=== PATIENT | female | born 1945 | race Caucasian/White ===

== ENCOUNTER → 2017-10-21 | Outpatient (CLI) | payer MEDICARE, OTHER ==
[~2017-10-21] MED LIST: FLAGYL500 MG PO; LEVAQUIN 750MG750 M1 PO; PARLODEL 2.5MG2.5 MG PO; PERCOCET 325 MG1 TA2 PO; PREMARIN .3MG0.3 MG PO; ULTRAM 50MG TAB50 MG PO; ZOFRAN8 MG PO
== END ==
LOC: MC.RAD 09-16 14:20
DX: Z12.31 Encounter for screening mammogram for malignant neoplasm of breast (principal)

== ENCOUNTER 2019-07-23 08:01 | Day surgery (SDC) | payer MEDICARE ==
[~2019-07-23] VITALS: Ht 160 cm; Wt 95.9 kg
[~2019-07-23 08:01] MED LIST changes: +CIPRO 500MG TA500 MG PO; +LIPITOR 10MG10 MG PO; +MOTRIN 200200 MG/TAB PO; +NORCO 325 MG-51 TAB PO; +TYLENOL 500MG500 MG PO
[2019-07-23 08:51] VITALS: BP 172/79; PULSE 64; TEMP 97.9
[2019-07-23] MEDS ORDERED: SYNTHROID0.05 MG/TA PO (08:56)
[2019-07-23] MEDS ORDERED: LIPITOR 10MG10 MG PO (08:57)
[2019-07-23 10:10] VITALS: BP 132/69; PULSE 82; TEMP 97.7
--- NOTE | 2019-07-23 10:10 | NUR ---
Patient brought back from endo suites via cart. Ambulated to chair without difficulty. Daughter in law at bedside. Placed on monitors, vital signs stable. Warm blanket provided. Pt requests coffee and muffin. Denies any nausea or pain. All safety maintained, call claudio within reach. Will continue to montior.
[2019-07-23 10:15] VITALS: BP 130/69; PULSE 72
[2019-07-23 10:30] VITALS: BP 125/56; PULSE 80
--- NOTE | 2019-07-23 10:30 | NUR ---
Patient tolerating food and drink without difficulty. Vital signs stable. IV infusing without difficulty. Will continue to monitor.
[2019-07-23 10:45] VITALS: BP 117/66; PULSE 72
--- NOTE | 2019-07-23 10:45 | NUR ---
Patient states she is feeling ready to go home. Vital signs stable. IV removed. Patient to get dressed at this time.
--- NOTE | 2019-07-23 11:05 | NUR ---
Discharge instructions reviewed with patient and family. All questions answered. Pt brought down to lobby via wheel chair. Daughter in law to drive pt home.
== END 2019-07-23 11:05 | disposition home or self-care (01) ==
LOC: SDCO 08:01
DX: Z12.11 Encounter for screening for malignant neoplasm of colon (principal); K57.30 Diverticulosis of large intestine without perforation or abscess without bleeding; K63.89 Other specified diseases of intestine; K64.4 Residual hemorrhoidal skin tags; E11.9 Type 2 diabetes mellitus without complications; K76.0 Fatty (change of) liver, not elsewhere classified; E78.00 Pure hypercholesterolemia, unspecified; Z83.71 Family history of colonic polyps; Z90.710 Acquired absence of both cervix and uterus
CPT/HCPCS: J2250; J2405; J3010; J7030

== ENCOUNTER 2019-08-10 20:07 | Emergency (ER) | payer MEDICARE ==
[~2019-08-10] VITALS: Ht 160 cm; Wt 100.0 kg
[~2019-08-10 20:07] MED LIST changes: +SYNTHROID0.05 MG/TA PO
[2019-08-10 20:20] VITALS: BP 159/70; TEMP 99.1
[2019-08-10] MEDS ORDERED: PREMARIN .3MG0.3 MG PO (20:23)
[2019-08-10] MEDS ORDERED: ZOCOR 10MG10 MG PO (20:24)
[2019-08-10] MEDS ORDERED: PRINIVIL10 MG PO (20:24)
[2019-08-10 21:03] LABS: BASO # 0.1 (0.0-0.2); EOS # 0.2 (0.0-0.7); EOS % 2.7 % (0-4.0); GRAN # 5.6 (1.4-6.5); GRAN % 66.9 % (42.2-75.2); HEMOGLOBIN 14.2 g/dl (12.5-16.0); LYMPH # 1.4 (1.2-3.4); LYMPH % 16.9 % (20.0-51.0); MEAN CELL VOLUME 89 fl (80.0-100.0); MEAN CORPUSCULAR HEMOGLOBIN 30 pg (27.0-31.0); MEAN CORPUSCULAR HGB CONC 34 g/dl (33.0-37.0); MEAN PLATELET VOLUME 11.2 fl (7.4-10.4); MONO % 12.3 % (1.7-9.3); PLATELET COUNT 210 K/mm3 (130-400); RED BLOOD COUNT 4.72 M/mm3 (4.10-5.30); REDCELL DISTRIBUTION WIDTH-CV 12.3 % (11.5-14.5)
[2019-08-10 21:15] LABS: ALBUMIN 4.4 gm/dL (3.5-5.0); BILIRUBIN,TOTAL 0.5 mg/dL (0.0-1.0); CALCIUM 9.4 mg/dL (8.4-10.2); CREATININE, serum 0.75 (0.52-1.25); TOTAL PROTEIN 7.7 gm/dL (6.4-8.2)
[2019-08-10 21:53] LABS: COLLECTION METHOD CLEAN CATCH
[2019-08-10 21:58] LABS: MUCOUS Present /lpf; PH 5 (5-8); SQUAMOUS EPITHELIAL 0-2 /hpf; URINE APPEARANCE Clear; URINE BACTERIA None Seen /hpf; URINE BILIRUBIN Negative (NEGATIVE); URINE BLOOD Negative (NEGATIVE); URINE COLOR Yellow; URINE GLUCOSE 2+ (NEGATIVE); URINE KETONE Negative (NEGATIVE); URINE LEUKOCYTE ESTERASE Trace (NEGATIVE); URINE NITRATE Negative (NEGATIVE); URINE PROTEIN(semi-quant) Negative (NEGATIVE); URINE RBC 0-2 /hpf; URINE UROBILINOGEN Negative (NEGATIVE)
[2019-08-10] MEDS ORDERED: DOXYCYCLINE 10100 MG PO (22:42)
[2019-08-11 00:13] VITALS: PULSE 83
== END 2019-08-11 00:13 | disposition home or self-care (01) ==
LOC: COL.ER 20:07
PROVIDERS: Nurse Practitioner
DX: R50.9 Fever, unspecified (principal); J98.8 Other specified respiratory disorders; I10 Essential (primary) hypertension; E78.5 Hyperlipidemia, unspecified; Z88.1 Allergy status to other antibiotic agents; Z88.8 Allergy status to other drugs, medicaments and biological substances; Z90.710 Acquired absence of both cervix and uterus
CPT/HCPCS: J7030

== ENCOUNTER 2019-08-13 13:27 | Inpatient (IN) | payer MEDICARE ==
[~2019-08-13] VITALS: Ht 160 cm; Wt 96.3 kg
[~2019-08-13 13:27] MED LIST changes: +DOXYCYCLINE 10100 MG PO; +PRINIVIL10 MG PO; +ZOCOR 10MG10 MG PO
[2019-08-13 14:40] LABS: BASO # 0.1 (0.0-0.2); BASO % 0.9 % (0.0-2.0); EOS # 0.2 (0.0-0.7); EOS % 2.4 % (0-4.0); GRAN # 3.3 (1.4-6.5); HEMATOCRIT 43.2 % (37.0-47.0); HEMOGLOBIN 14.4 g/dl (12.5-16.0); LYMPH # 2.4 (1.2-3.4); LYMPH % 35.6 % (20.0-51.0); MEAN CELL VOLUME 89 fl (80.0-100.0); MEAN CORPUSCULAR HEMOGLOBIN 30 pg (27.0-31.0); MEAN CORPUSCULAR HGB CONC 33 g/dl (33.0-37.0); MONO # 0.8 (0.1-0.6); MONO % 11.8 % (1.7-9.3); PLATELET COUNT 228 K/mm3 (130-400); RED BLOOD COUNT 4.85 M/mm3 (4.10-5.30); REDCELL DISTRIBUTION WIDTH-CV 12.4 % (11.5-14.5)
[2019-08-13 14:52] LABS: ALBUMIN 4.3 gm/dL (3.5-5.0); BILIRUBIN,TOTAL 0.7 mg/dL (0.0-1.0); C-REACTIVE PROTEIN 2.8 mg/dL (0.0-0.9); CALCIUM 9.4 mg/dL (8.4-10.2); CREATININE, serum 0.64 (0.52-1.25); POTASSIUM 4.6 mmol/L (3.4-5.0); TOTAL PROTEIN 7.7 gm/dL (6.4-8.2)
[2019-08-13 20:37] VITALS: BP 149/62; PULSE 75; TEMP 98.1
[2019-08-13 23:19] VITALS: BP 158/72; PULSE 71; TEMP 97.7
[2019-08-14 03:09] VITALS: BP 125/76; BP 187/78; PULSE 101; PULSE 132; TEMP 97.3; TEMP 97.9
[2019-08-14 05:02] VITALS: BP 178/80; PULSE 65
[2019-08-14 07:49] VITALS: BP 157/69; PULSE 66; TEMP 97.7
--- NOTE | 2019-08-14 11:15 | NUR ---
Pt assessment completed and charted. Medications administered per MAR. Pt sitting in bed with family at bedside. Pt on 2L NC, denies SOB, breathing even and unlabored. RLL sounds coarse. Pt has LAC w/ IVF infusing, currently DC'd, IV INT'd. IV wrapped for shower. Pt positive for metapneumovirus, placed on droplet precautions. No other concerns expressed at this time.
[2019-08-14 11:33] VITALS: BP 163/75; PULSE 70; TEMP 97.9
--- NOTE | 2019-08-14 14:23 | NUR ---
PT WALKED APPROX 50 FT ON ROOM AIR. SPOO2 DROPPED BRIEFLY TO 89% WITH QUICK RECOVERY BACK TO ROOM. SPPO2 93% ROOM AIR UPON RETURN TO ROOM AND SITTING ON SIDE OF BED. O2 BACK ON @ 2 LPM NC. PT APPEARED DYSPNEIC FROM EXERCISE.
--- NOTE | 2019-08-14 15:05 | NUR ---
[facility] [employer] met with patient to discuss discharge planning. Patient lives alone in [place] but reports her children Fernando Montiel, and Suha live locally and can check in on her as needed. Patient states her other daughter Almaz lives in [place]. Patient sees Dr. Mackey for primary care and obtains medications from [facility]. Patient reports a couple years ago she stopped taking a medication for her hot flashes because it became too expensive. Other than this occurrence, patient does not have difficulties obtaining medications. Patient does not use any DME or home oxygen however is currently on 2 liters of oxygen. SW reviewed exercise oximetry and patient will not qualify for home oxygen. Patient reports independence with ADLS and plans to return home upon discharge. Patient has Advance Directives located in EMR. SW to continue to follow as needed.
[2019-08-14] MEDS ORDERED: NORCO 325 MG-51 TAB PO (15:49)
[2019-08-14 16:24] VITALS: BP 155/67; PULSE 75; TEMP 98.1
--- NOTE | 2019-08-14 20:00 | NUR ---
Recieved report from DALIA Walton. Assessment complete. Alert and oriented. Denies any pain, SOB, or discomfort at this time. Meds administered as ordered. INT to LAC intact, flushed, dressing CDI. On 2LO2NC. Needs met. Call light within reach.
[2019-08-14 23:12] VITALS: BP 155/66; PULSE 63; TEMP 97.7
[2019-08-15 04:08] VITALS: BP 135/52; PULSE 64; TEMP 97.6
--- NOTE | 2019-08-15 05:20 | NUR ---
Pt made no complaints during this shift. Meds administered. Needs met. Call light within reach.
--- NOTE | 2019-08-15 06:59 | NUR ---
Report given to DALIA Muse.
[2019-08-15 07:28] VITALS: BP 138/55; PULSE 61; TEMP 97.5
--- NOTE | 2019-08-15 08:45 | NUR ---
Assessment complete. Pt sitting up in chair, A&O x 4. Slight crackles to bases bilat. Pt denies pain at this time. Saline lock IV to left AC without s/s of complications. POC for discharge reviewed with pt. No further needs reported. Call light in reach.
--- NOTE | 2019-08-15 09:20 | NUR ---
Preparation Room Manager attended clinical rounds with the team and patient to discharge home today. Hospitalist discussed PT recommendation for outpatient PT. Patient reports she is not sure if she wants to make an appointment at this time but will discuss this with her primary care physician at her follow up appointment. Patient reports her daughter will be here to pick her up this afternoon. No additional needs identified at this time.
[2019-08-15] MEDS ORDERED: PRINIVIL20 MG PO (09:46)
[2019-08-15 11:10] VITALS: BP 161/84; PULSE 65; TEMP 98.1
--- NOTE | 2019-08-15 11:45 | NUR ---
Discharge instructions reviewed with pt regarding change in medications and follow-up appointment. Pt verbalizes understanding. IV discontinued from left AC with tip intact. Pt awaiting daughter for ride home.
== END 2019-08-15 13:30 | disposition home or self-care (01) | DRG 865 ==
LOC: COL.ER 13:27 → MEDICAL 19:44
PROVIDERS: Nurse Practitioner Primary Care; ADMIT Student in an Organized Health Care Education/Training Program
DX: B97.81 Human metapneumovirus as the cause of diseases classified elsewhere (principal); J96.01 Acute respiratory failure with hypoxia; I10 Essential (primary) hypertension; E78.5 Hyperlipidemia, unspecified; J06.9 Acute upper respiratory infection, unspecified; E03.9 Hypothyroidism, unspecified; Z90.710 Acquired absence of both cervix and uterus
CPT/HCPCS: OP; 99232-AI; 99239; G0378; J0360; J0456; J1650; J2920; J7030; J7050

== ENCOUNTER → 2019-11-20 | Outpatient (CLI) | payer MEDICARE ==
[~2019-11-20] MED LIST changes: +PRINIVIL20 MG PO
== END ==
LOC: MC.RAD 17:43
DX: Z12.31 Encounter for screening mammogram for malignant neoplasm of breast (principal)

== ENCOUNTER → 2020-06-30 | Outpatient (CLI) | payer MEDICARE | LOC: COL.RAD 07:38 | DX: D35.2 Benign neoplasm of pituitary gland (principal); G44.89 Other headache syndrome; G31.9 Degenerative disease of nervous system, unspecified | CPT/HCPCS: A9585 ==

== ENCOUNTER → 2021-08-07 | Outpatient (CLI) | payer MEDICARE | LOC: COL.RAD 12:39 | DX: D35.2 Benign neoplasm of pituitary gland (principal) | CPT/HCPCS: A9575 ==

== ENCOUNTER → 2021-08-18 | Outpatient (CLI) | payer MEDICARE | LOC: MC.RAD 11:12 | DX: Z12.31 Encounter for screening mammogram for malignant neoplasm of breast (principal) ==

== ENCOUNTER → 2022-01-25 | Outpatient (CLI) | payer MEDICARE | LOC: MC.RAD 09:14 | DX: N63.25 Unspecified lump in the left breast, overlapping quadrants (principal) ==